=== PATIENT | male | born 1985 | race Caucasian/White ===

== ENCOUNTER → 2021-08-09 15:43 | Outpatient (CLI) | payer OTHER, SELFPAY | PROVIDERS: PCP Internal Medicine Adolescent Medicine; Visit Provider Nurse Practitioner | DX: Z20.822 Contact with and (suspected) exposure to COVID-19 (principal) | CPT/HCPCS: C9803; U0003; U0005 ==

== ENCOUNTER → 2021-10-19 08:49 | Outpatient (CLI) | payer OTHER, SELFPAY ==
[2021-10-19 10:07] LABS: Chloride 102 mmol/L (98-107); Potassium 4.9 mmoL/L (3.5-5.1); Sodium 137 mmol/L (136-145)
[2021-10-19 10:10] LABS: Alanine Aminotransferase 64 U/L (12-78); Albumin Level 4.7 g/dl (3.5-5.0); Albumin/Globulin Ratio 1.7 (1.1-1.8); Alkaline Phosphatase 86 U/L (38-126); Anion Gap 11.9 mEq/L (5-15); Aspartate Amino Transferase 37 U/L (17-59); Bilirubin,Total 0.8 mg/dl (0.2-1.3); Calcium 8.6 mg/dl (8.4-10.2); Carbon Dioxide 28 mmol/L (22.0-30.0); Cholesterol 224 mg/dl (140-200); Globulin 2.8 g/dL (1.3-3.2); Glucose 97 mg/dl (74-100); Total Protein,Serum 7.5 g/dl (6.3-8.2); Triglycerides 101 mg/dl (30-150); VLDL Cholesterol 20 mg/dL (0-40)
[2021-10-19 10:11] LABS: Chol/HDL Ratio 4.7 (1-3.5); HDL Cholesterol 48 mg/dl (40-60)
[2021-10-19 10:21] LABS: Direct LDL Cholesterol 149.83 mg/dL (100-129)
[2021-10-19 10:33] LABS: Hemoglobin A1C 5.1 % (4.0-6.0)
[2021-10-19 11:20] LABS: Blood Urea Nitrogen 20 mg/dl (9-20); Estimated Glomerular Filt Rate 128 ml/min (>60); GFR (African American) 155 ML/MIN (>60)
== END ==
PROVIDERS: PCP Internal Medicine Adolescent Medicine; Referring Provider Nurse Practitioner Family; Visit Provider Nurse Practitioner Family
DX: Z00.00 Encounter for general adult medical examination without abnormal findings (principal); R73.9 Hyperglycemia, unspecified; Z68.34 Body mass index [BMI] 34.0-34.9, adult
CPT/HCPCS: 36415; 80053; 80061; 83036